=== PATIENT | female | born 1950 | race Two or more races ===

== ENCOUNTER 2020-07-07 11:40 | Emergency (ER) | payer MEDICARE, OTHER ==
[~2020-07-07] VITALS: Ht 154.9 cm; Wt 90.9 kg
[2020-07-07 11:58] VITALS: BP 141/79
[2020-07-07] MEDS ORDERED: METF-960 PO (12:24)
[2020-07-07] MEDS ORDERED: LOSA25TA21 PO (12:24)
[2020-07-07 15:54] LABS: COVID AG,FIA SOURCE NASOPHARYNGEAL
== END 2020-07-07 14:43 | disposition home or self-care (01) ==
LOC: EMS 12:14
DX: Z20.828 Contact with and (suspected) exposure to other viral communicable diseases (principal); E11.9 Type 2 diabetes mellitus without complications; E78.00 Pure hypercholesterolemia, unspecified; I10 Essential (primary) hypertension; Z90.710 Acquired absence of both cervix and uterus; Z90.89 Acquired absence of other organs; Z88.0 Allergy status to penicillin; Z79.84 Long term (current) use of oral hypoglycemic drugs
CPT/HCPCS: 87426; 99283; C9803